=== PATIENT | female | born 1950 | race Caucasian/White ===

== ENCOUNTER 2018-04-11 07:05 | Day surgery (SDC) | payer OTHER ==
[~2018-04-11 07:05] MED LIST: Acetaminophen TAB* 325 MG PO PRN; Buffered Lidocaine 0.9% SYRIN* 5 ML/SYR SYRINGE INTRADERM ONE
[2018-04-11] MEDS ORDERED: fentaNYL* 50 MCG/ML 2 ML VIAL (100 MCG VIAL) ONE (07:28)
[2018-04-11] MEDS ORDERED: Midazolam* 1 MG/ML 5 ML VIAL (5 MG) ONE (07:28)
[2018-04-11 08:45] VITALS: BP 120/69
[2018-04-11] MEDS ORDERED: Tropicamide 1% OPTH.SOL* BTL ONE (12:55)
[2018-04-11] MEDS ORDERED: Cyclopentolate 1% OPTH.SOL* 2 ML BTL ONE (12:55)
[2018-04-11] MEDS ORDERED: acetaZOLAMIDE TAB* 250 MG ONE (12:55)
[2018-04-11] MEDS ORDERED: Neomycin/Polymy/Dex OPHTH.OIN* 3.5 GM ONE (12:55)
[2018-04-11] MEDS ORDERED: Tetracaine 0.5% OPTH.SOL 4 ML* 1 DROP BTL ONE (12:55)
[2018-04-11] MEDS ORDERED: Povidone Iodine 5% OPTH* 30 ML BTL ONE (12:55)
[2018-04-11] MEDS ORDERED: Ketorolac 0.5% OPHTH (NF) 0.5 % 5 ML BTL ONE (12:55)
[2018-04-11] MEDS ORDERED: Lidocaine 1%* 5 ML VIAL ONE (12:55)
[2018-04-11] MEDS ORDERED: Phenylephrine 2.5% OPTH.SOL* 2 ML BTL ONE (12:55)
--- NOTE | 2018-04-11 22:28 | OP ---
DATE OF OPERATION: 04/11/18 - [facility] DATE OF : 50 SURGEON: Richard Madrid MD ANESTHESIA: Monitored anesthesia care. PRE-OP DIAGNOSIS: Cataract, right eye. POST-OP DIAGNOSIS: Cataract, right eye. OPERATIVE PROCEDURE: Extracapsular cataract extraction to the right eye with intraocular lens implant. IMPLANT: SN6AT5 19.5 diopter lens to the right eye. COMPLICATIONS: None. DESCRIPTION OF PROCEDURE: The patient was given phenylephrine 2.5% and cyclopentolate 1% eye drops to the operative eye in the preoperative area. With the patient sitting in an upright position, corneal markings were placed to assist with toric lens placement. The patient was taken to the operating where a time-out was taken to identify the correct patient, site, and side of surgery. The patient's right eye was prepped and draped in the usual sterile fashion with 5% Betadine. A second time-out was taken to verify the correct patient, side, and site of surgery and correct lens implant. A lid speculum was placed to the right eye. Corneal markings were placed at 58 degrees. A 1 mm paracentesis blade was used to make a clear corneal incision in the superotemporal position. Preservative-free 1% lidocaine was injected into the anterior chamber. DisCoVisc was then injected into the anterior chamber. A 2.75 mm keratome blade was used to make a triplanar incision at the inferotemporal position. A cystotome initiated a capsulorrhexis, which was completed with Utrata forceps in a continuous and curvilinear manner. Hydrodissection of the lens was performed with BSS on a cannula. The lens could be spun in a capsular bag. The phacoemulsification handpiece was used with a [id number] technique to remove the nucleus with 12.39 CDE. The I /A handpiece then removed the residual cortical lens material. DisCoVisc was injected to inflate the capsular bag. The planned SN6AT5 19.5 diopter lens was then injected to the capsular bag and rotated to 58 degrees. The residual DisCoVisc was removed from the eye with the I/A hand-piece. The lens was confirmed to be in the correct position. The corneal incisions were hydrated and no leaks occurred at physiologic pressure around 20 mmHg per palpation. The lid speculum was removed and drapes were removed. Maxitrol ointment was placed to the surface of the operative eye. An adhesive patch and shield was then placed on the operative eye. The patient was taken to the postoperative area in stable condition. [id number]/[facility] #: [id number] MTDD
== END 2018-04-11 08:57 | disposition home or self-care (01) ==
LOC: OREAST 07:05
PROVIDERS: ATTEND Student in an Organized Health Care Education/Training Program
DX: H25.11 Age-related nuclear cataract, right eye (principal); H43.813 Vitreous degeneration, bilateral; Z87.891 Personal history of nicotine dependence; Z85.41 Personal history of malignant neoplasm of cervix uteri; F41.8 Other specified anxiety disorders
CPT/HCPCS: A9270-GY; J2250; J3010; V2787

== ENCOUNTER 2018-04-20 08:39 | Day surgery (SDC) | payer OTHER ==
[2018-04-20] MEDS ORDERED: Midazolam* 1 MG/ML 2 ML VIAL (2 MG) ONE ×2 (10:04→10:10)
[2018-04-20] MEDS ORDERED: fentaNYL* 50 MCG/ML 2 ML VIAL (100 MCG VIAL) ONE (10:08)
[2018-04-20 10:36] VITALS: BP 113/62
[2018-04-20] MEDS ORDERED: Povidone Iodine 5% OPTH* 30 ML BTL ONE (10:45)
[2018-04-20] MEDS ORDERED: Ketorolac 0.5% OPHTH (NF) 0.5 % 5 ML BTL ONE (10:45)
[2018-04-20] MEDS ORDERED: Neomycin/Polymy/Dex OPHTH.OIN* 3.5 GM ONE (10:45)
[2018-04-20] MEDS ORDERED: Lidocaine 1%* 5 ML VIAL ONE (10:45)
[2018-04-20] MEDS ORDERED: acetaZOLAMIDE TAB* 250 MG ONE (10:45)
[2018-04-20] MEDS ORDERED: Tropicamide 1% OPTH.SOL* BTL ONE (10:45)
[2018-04-20] MEDS ORDERED: Cyclopentolate 1% OPTH.SOL* 2 ML BTL ONE (10:45)
[2018-04-20] MEDS ORDERED: Tetracaine 0.5% OPTH.SOL 4 ML* 1 DROP BTL ONE (10:45)
[2018-04-20] MEDS ORDERED: Phenylephrine 2.5% OPTH.SOL* 2 ML BTL ONE (10:45)
--- NOTE | 2018-04-20 12:28 | OP ---
DATE OF OPERATION: 04/20/18 - [facility] DATE OF : 50 SURGEON: Richard Madrid MD ANESTHESIA: Monitored anesthesia care. PREOPERATIVE DIAGNOSIS: Cataract, left eye. POSTOPERATIVE DIAGNOSIS: Cataract, left eye. OPERATIVE PROCEDURE: Extracapsular cataract extraction of the left eye with intraocular lens implant. IMPLANT: SN60WF 20.0 diopter lens to the left eye. COMPLICATIONS: None. DESCRIPTION OF PROCEDURE: The patient was given phenylephrine 2.5% and cyclopentolate 1% eye drops to the operative eye in the preoperative area. The patient was taken to the operating room where a time-out was taken to identify the correct patient, site, and side of surgery. The patient's left eye was prepped and draped in the usual sterile fashion with 5% Betadine. A second time- out was taken to verify the correct patient, side, and site of surgery, as well as the correct lens implant. A lid speculum was placed to the left eye. A 1mm paracentesis blade was used to make a clear corneal incision. Preservative-free 1% lidocaine was injected into the anterior chamber. DisCoVisc was then injected into the anterior chamber. A 2.75 mm keratome blade was used to make a triplanar incision. A cystotome initiated a capsulorrhexis, which was completed with Utrata forceps in a continuous and curvilinear manner. Hydrodissection of the lens was performed with BSS on a cannula. The lens could be spun in a capsular bag. The phacoemulsification handpiece was used with a divide-and- conquer technique to remove the nucleus. The I/A handpiece then removed the residual cortical lens material. DisCoVisc was injected to inflate the capsular bag. The planned SN60WF 20.0 diopter lens was injected into the capsular bag. The residual DisCoVisc was removed from the eye with the I/A handpiece. The corneal incisions were hydrated and no leaks occurred at physiologic pressure around 20 mmHg per palpation. The lid speculum was removed and drapes were removed. Maxitrol ointment was placed to the surface of the operative eye. An adhesive patch and shield was then placed on the operative eye. The patient was taken to the postoperative area in stable condition. [id number]/[facility] #: [id number] [facility]
== END 2018-04-20 10:39 | disposition home or self-care (01) ==
LOC: OREAST 08:39
PROVIDERS: ATTEND Student in an Organized Health Care Education/Training Program
DX: H25.12 Age-related nuclear cataract, left eye (principal); H43.813 Vitreous degeneration, bilateral; F41.8 Other specified anxiety disorders; Z85.41 Personal history of malignant neoplasm of cervix uteri; Z87.891 Personal history of nicotine dependence
CPT/HCPCS: A9270-GY; J2250; J3010; V2632

== ENCOUNTER 2023-06-17 18:57 | Inpatient (IN) ==
[2023-06-17 19:39] LABS: ABS Basophils 0.1 10^3/uL (0.0-0.1); ABS Eosinophils 0.3 10^3/uL (0.0-0.5); ABS Monocytes 0.5 10^3/uL (0.0-0.9); ABS Neutrophils 4.4 10^3/uL (1.5-7.6); Eosinophil % 3.8 %; Hematocrit 43.4 % (35-45); Hemoglobin 14.7 g/dL (11.5-14.3); Lymphocyte % 27.8 %; Mean Corpuscular Hemoglobin 31.4 pg (27-33); Mean Corpuscular Hgb Conc 33.8 g/dL (31-36); Mean Corpuscular Volume 93.1 fL (80-97); Mean Platelet Volume 8.1 fL (7.5-11.2); Nucleated Red Blood Cells % 0.1 %/100WBC (0.0-0.8); Platelet Count 257 10^3/uL (150-450); Red Blood Count 4.66 10^6/uL (3.63-4.92); Red Cell Distribution Width 15.5 % (12-17); White Blood Count 7.3 10^3/uL (3.8-11.8)
[2023-06-17 20:04] LABS: Albumin 4.4 g/dL (3.2-5.2); Calcium 10.2 mg/dL (8.6-10.3); Potassium 3.8 mmol/L (3.5-5.0); Total Bilirubin 0.7 mg/dL (0.2-1.0)
[2023-06-17 20:10] LABS: Albumin/Globulin Ratio 1.8 (1-3); Creatinine, Serum 1.05 mg/dL (0.51-0.95); Globulin 2.5 g/dL (2-4); Total Protein 6.9 g/dL (6.4-8.9); eGFR CKD-EPI 56.5 (>60)
[2023-06-17 21:56] LABS: High Sensitivity Troponin 1 Hr 281 pg/mL (<15)
[2023-06-17 22:45] LABS: INR 1.01 (0.83-1.13)
[2023-06-17] MEDS ORDERED: Heparin DRIP 25,000 UNITS BAG 25,000 UNITS/500 ML BAG IV SCH (23:30)
[2023-06-18 00:29] LABS: Activated Partial Thrombo Time 29.5 seconds (26.0-38.0)
[2023-06-18] MEDS: Heparin 5000 UNITS/ML 1 mL VIAL IV SCH ×2 (01:14→19:55)
[2023-06-18 06:55] LABS: ABS Basophils 0.1 10^3/uL (0.0-0.1); ABS Eosinophils 0.4 10^3/uL (0.0-0.5); ABS Lymphocytes 2.4 10^3/uL (1.0-4.8); ABS Monocytes 0.4 10^3/uL (0.0-0.9); ABS Neutrophils 2.3 10^3/uL (1.5-7.6); ABS Nucleated RBC 0.02 10^3/ul; Eosinophil % 7.3 %; Hematocrit 42.1 % (35-45); Hemoglobin 14.1 g/dL (11.5-14.3); Lymphocyte % 42.8 %; Mean Corpuscular Hemoglobin 31.5 pg (27-33); Mean Corpuscular Hgb Conc 33.4 g/dL (31-36); Mean Corpuscular Volume 94.2 fL (80-97); Mean Platelet Volume 8.2 fL (7.5-11.2); Nucleated Red Blood Cells % 0.3 %/100WBC (0.0-0.8); Platelet Count 242 10^3/uL (150-450); Red Blood Count 4.47 10^6/uL (3.63-4.92); Red Cell Distribution Width 15.5 % (12-17); White Blood Count 5.6 10^3/uL (3.8-11.8)
[2023-06-18] MEDS ORDERED: DULoxetine DR 20 mg CAP PO SCH (09:00)
[2023-06-18 09:30] LABS: Calcium 9.3 mg/dL (8.6-10.3); Creatinine, Serum 1.01 mg/dL (0.51-0.95); HDL Cholesterol 88.1 mg/dL; Potassium 3.8 mmol/L (3.5-5.0); eGFR CKD-EPI 59.1 (>60)
[2023-06-18 12:09] LABS: High Sensitivity Troponin 3 Hr 131 pg/mL (<15)
[2023-06-18] MEDS ORDERED: Iodixanol (CONTRAST) 320 MG/ML 100 ML SDV IV ONE (12:13)
[2023-06-19] MEDS ORDERED: Potassium Chlor 20 meq TAB.ER PO ONE (07:45)
[2023-06-19 08:10] LABS: Calcium 8.8 mg/dL (8.6-10.3); Creatinine, Serum 0.91 mg/dL (0.51-0.95); Potassium 3.6 mmol/L (3.5-5.0)
[2023-06-19 08:33] LABS: Hematocrit 41.6 % (35-45); Mean Corpuscular Hemoglobin 31.5 pg (27-33); Mean Corpuscular Hgb Conc 33.7 g/dL (31-36); Mean Corpuscular Volume 93.6 fL (80-97); Mean Platelet Volume 7.9 fL (7.5-11.2); Platelet Count 226 10^3/uL (150-450); Red Blood Count 4.45 10^6/uL (3.63-4.92); Red Cell Distribution Width 15.4 % (12-17); White Blood Count 4.8 10^3/uL (3.8-11.8)
[2023-06-19 08:41] LABS: RBC Morphology Normal (Normal)
[2023-06-19] MEDS: FLUTICASONE 50 MCG BOTH NARES SCH (11:05)
[2023-06-19] MEDS ORDERED: Calcium Carb (TUMS) 500 mg CHEW TAB PO PRN (11:07)
[2023-06-20 06:37] LABS: ABS Eosinophils 0.3 10^3/uL (0.0-0.5); ABS Lymphocytes 1.7 10^3/uL (1.0-4.8); ABS Monocytes 0.6 10^3/uL (0.0-0.9); ABS Neutrophils 4.5 10^3/uL (1.5-7.6); Eosinophil % 4.5 %; Lymphocyte % 24.4 %; Mean Corpuscular Hemoglobin 31.8 pg (27-33); Mean Corpuscular Hgb Conc 34.1 g/dL (31-36); Mean Corpuscular Volume 93.1 fL (80-97); Mean Platelet Volume 8.3 fL (7.5-11.2); Platelet Count 227 10^3/uL (150-450); Red Blood Count 4.41 10^6/uL (3.63-4.92); White Blood Count 7.2 10^3/uL (3.8-11.8)
[2023-06-20 06:50] LABS: Creatinine, Serum 0.9 mg/dL (0.51-0.95); Potassium 3.7 mmol/L (3.5-5.0); eGFR CKD-EPI 67.9 (>60)
[2023-06-20] MEDS: DULoxetine DR 20 mg CAP PO SCH (08:54)
[2023-06-20] MEDS: FLUTICASONE 50 MCG BOTH NARES SCH ×2 (08:55→20:50)
[2023-06-20] MEDS ORDERED: Potassium Chlor 20 meq TAB.ER PO ONE (17:16)
[2023-06-21] MEDS: DULoxetine DR 20 mg CAP PO SCH (11:13)
[2023-06-21] MEDS: FLUTICASONE 50 MCG BOTH NARES SCH (11:13)
[2023-06-21 12:22] VITALS: BP 121/53
== END 2023-06-21 13:46 | disposition home or self-care (01) | DRG 310 ==
LOC: ED 18:57 → EDHOLD 18:57 → OBSVTOIN 23:28 → INTOOBSV 23:28 → SUATTDRO 23:28 → MEDTELE 06-18 01:05
PROVIDERS: ADMIT Student in an Organized Health Care Education/Training Program; ATTEND Internal Medicine